=== PATIENT | female | born 1975 | race Caucasian/White ===

== ENCOUNTER 2016-09-09 14:04 | Emergency (ER) | payer OTHER ==
[~2016-09-09] VITALS: Ht 165.1 cm; Wt 61.2 kg
[2016-09-09 14:15] VITALS: BP 150/87
[2016-09-09] MEDS ORDERED: LIDOCAINE HCL/PF 1% 30 ML VIAL TP ONE (14:30)
[2016-09-09] MEDS ORDERED: MIDAZOLAM HCL 2 MG/2ML VIAL ONE (14:58)
[2016-09-09] MEDS ORDERED: MIDAZOLAM HCL 2 MG/2ML VIAL IM ONE (16:00)
== END 2016-09-09 15:42 | disposition home or self-care (01) ==
LOC: ER 14:28
DX: N75.0 Cyst of Bartholin's gland (principal); F32.9 Major depressive disorder, single episode, unspecified; F41.9 Anxiety disorder, unspecified
CPT/HCPCS: A4606; A6402; J2250; J3490; Z7610

== ENCOUNTER 2016-09-11 01:45 | Emergency (ER) | payer OTHER ==
[~2016-09-11] VITALS: Ht 160 cm; Wt 49.9 kg
[2016-09-11 02:03] VITALS: BP 119/75
== END 2016-09-11 02:28 | disposition home or self-care (01) ==
LOC: ER 01:45
DX: N75.0 Cyst of Bartholin's gland (principal); F32.9 Major depressive disorder, single episode, unspecified; F41.9 Anxiety disorder, unspecified
CPT/HCPCS: 99281; A4606; Z7610; Z7502

== ENCOUNTER 2016-10-27 01:13 | Emergency (ER) | payer OTHER ==
[~2016-10-27] VITALS: Ht 160 cm; Wt 49.9 kg
--- NOTE | 2016-10-27 01:54 | NUR ---
CALLING [employer]. [employer] NUMBER: [id number].
--- NOTE | 2016-10-27 02:00 | NUR ---
DR. PIMENTEL IS AT THE BEDSIDE.
--- NOTE | 2016-10-27 02:26 | NUR ---
ARIELLE ROCA AT THE BEDSIDE. POINT ARENA ABELINO IS EN ROUTE.
--- NOTE | 2016-10-27 02:46 | NUR ---
PT AMBULATED TO THE BATHROOM FOR A URINE SAMPLE.
--- NOTE | 2016-10-27 02:49 | NUR ---
SKYLAR ROCA ARRIVED AND IS SPEAKING TO ARIELLE ROCA.
--- NOTE | 2016-10-27 03:15 | NUR ---
[place] [employer] LEFT THE PT.
--- NOTE | 2016-10-27 03:45 | NUR ---
PT IN CT
--- NOTE | 2016-10-27 04:12 | NUR ---
PT RETURNED FROM CT.
--- NOTE | 2016-10-27 06:11 | NUR ---
Patient discharged to home in stable condition. Written and verbal after care instructions given. Patient verbalizes understanding of instruction AND RX. PT'S VSS. PT IS CALLING A FRIEND TO PICK HER UP.
[2016-10-27 06:17] VITALS: BP 119/75
== END 2016-10-27 06:18 | disposition home or self-care (01) ==
LOC: ER 01:15
DX: S00.83XA Contusion of other part of head, initial encounter (principal); S40.022A Contusion of left upper arm, initial encounter; S50.12XA Contusion of left forearm, initial encounter; S20.219A Contusion of unspecified front wall of thorax, initial encounter; F41.9 Anxiety disorder, unspecified; F32.9 Major depressive disorder, single episode, unspecified; Y04.8XXA Assault by other bodily force, initial encounter; Y93.9 Activity, unspecified; Y92.9 Unspecified place or not applicable; Y99.9 Unspecified external cause status
CPT/HCPCS: 70486; 71020; 73060; 84703; 99284; A4606; Z7610